=== PATIENT | female | born 1930 | race Caucasian/White ===

== ENCOUNTER 2016-08-04 23:11 | Inpatient (IN) | payer OTHER, MEDICARE ==
--- NOTE | 2016-08-04 23:20 | PDOC ---
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 The patient states the pain is radiating down her left arm pain. The patient notes she took her daily medications today. The patient denies SOB The patient denies nausea, vomiting, diarrhea Allergies: NKDA Social: Former smoker Surgical: double knee replacement, 3 C-sections, thyroid surgery (May 2016, US shows diffuse nodularity) PCP: Dr. Hyman Industrial Gas Fitter: Dr. Negrete 08/04/16 23:51 (Brissa Rodrigues) Past History <Brissa Rodrigues - Last Filed: 08/05/16 00:48> - Past Medical History HTN: Yes Suicide Attempt (Hx): No - Psycho/Social/Smoking Cessation Hx Anxiety: No Suicidal Ideation: No Smoking History: Former smoker Have you smoked in the past 12 months: No If you are a former smoker, when did you quit?: 50 YEARS AGO Hx Alcohol Use: No Drug/Substance Use Hx: No Substance Use Type: None <Libertad Kaplan - Last Filed: 08/05/16 01:05> - Past Medical History Allergies/Adverse Reactions: Allergies Allergy/AdvReac Type Severity Reaction Status Date / Time No Known Allergies Allergy Verified 10/09/15 18:55 Home Medications: Ambulatory Orders Carvedilol [Coreg] 25 mg PO BID 12/02/14 Methimazole [Tapazole] 2.5 mg PO DAILY 08/05/16 Review of Systems - Review of Systems Able to Perform ROS?: Yes <Brissa Rodrigues - Last Filed: 08/05/16 00:48> <Libertad Kaplan - Last Filed: 08/05/16 01:05> - Review of Systems Comments:: 08/04/16 23:49 CONSTITUTIONAL: Absent: fever, chills, diaphoresis, generalized weakness, malaise, loss of appetite HEENT: Absent: rhinorrhea, nasal congestion, throat pain, throat swelling, difficulty swallowing, mouth swelling, ear pain, eye pain, visual Changes CARDIOVASCULAR: +palpitations, chest pain. Absent: syncope, lightheadedness, peripheral edema RESPIRATORY: Absent: cough, shortness of breath, dyspnea with exertion, orthopnea, wheezing, stridor, hemoptysis GASTROINTESTINAL: Absent: abdominal pain, abdominal distension, nausea, vomiting, diarrhea, constipation, melena, hematochezia GENITOURINARY: Absent: dysuria, frequency, urgency, hesitancy, hematuria, flank pain, genital pain MUSCULOSKELETAL: +left arm pain. Absent: joint swelling SKIN: Absent: rash, itching, pallor NEUROLOGIC: Absent: headache, focal weakness or paresthesias, dizziness, unsteady gait, seizure, mental status changes, bladder or bowel incontinence PSYCHIATRIC: Absent: anxiety, depression, suicidal or homicidal ideation, hallucinations ( Brissa Rodrigues) *Physical Exam <Brissa Rodrigues - Last Filed: 08/05/16 00:48> <Libertad Kaplan - Last Filed: 08/05/16 01:05> - Vital Signs Last Vital Signs Temp Pulse Resp BP Pulse Ox 96.8 F L 132 H 25 H 97/60 96 08/04/16 23:33 08/05/16 00:23 08/05/16 00:23 08/05/16 00:23 08/05/16 00:23 - Physical Exam Comments: 08/04/16 23:51 GENERAL: Well developed, well nourished. Awake and alert. No acute distress. HEENT: Normocephalic, atraumatic. PERRLA, EOMI. No conjunctival pallor. Sclera are non- icteric. Moist mucous membranes. Oropharynx is clear. NECK: Supple. Full ROM. No JVD. Carotid pulses 2+ and symmetric, without bruits. No thyromegaly. No lymphadenopathy. CARDIOVASCULAR: +Afib. No murmurs, rubs, or gallops. Distal pulses are 2+ and symmetric. PULMONARY: No evidence of respiratory distress. Lungs clear to auscultation bilaterally. No wheezing, rales or rhonchi. ABDOMINAL: Soft. Non-tender. Non-distended. No rebound or guarding. No organomegaly. Normoactive bowel sounds. MUSCULOSKELETAL Normal range of motion at all joints. No bony deformities or tenderness. No CVA tenderness. EXTREMITIES: No cyanosis. No clubbing. No edema. No calf tenderness. SKIN: Warm and dry. Normal capillary refill. No rashes. No jaundice. NEUROLOGICAL: Alert, awake, appropriate. Cranial nerves 2-12 intact. No deficits to light touch and temperature in face, upper extremities and lower extremities. No motor deficits in the in face, upper extremities and lower extremities. Normoreflexic in the upper and lower extremities. Normal speech. PSYCHIATRIC: Cooperative. Good eye contact. Appropriate mood and affect. (Brissa Rodrigues) Heart Score/ECG Review <Brissa Rodrigues - Last Filed: 08/05/16 00:48> <Libertad Kaplan - Last Filed: 08/05/16 01:05> - ECG Impressions Comment:: 08/04/16 23:58 EKG Afib at a rate of 153 (Brissa Rodrigues) ED Treatment Course - LABORATORY CBC & Chemistry Diagram: 08/04/16 23:51 08/05/16 23:51 <Brissa Rodrigues - Last Filed: 08/05/16 00:48> - LABORATORY CBC & Chemistry Diagram: 08/04/16 23:51 08/05/16 23:51 <Libertad Kaplan - Last Filed: 08/05/16 01:05> - ADDITIONAL ORDERS Additional order review: Laboratory Results 08/05/16 08/04/16 23:51 23:51 INR 1.16 H Sodium 144 Potassium 4.3 Chloride 106 Carbon Dioxide 27 Anion Gap 11 BUN 28 H Creatinine 0.9 Creat Clearance w eGFR 59.65 Random Glucose 115 H D Calcium 8.4 L Magnesium 2.1 Total Bilirubin 0.3 D AST 19 D ALT 14 Alkaline Phosphatase 60 Creatine Kinase 45 Troponin I < 0.02 Total Protein 6.1 L Albumin 2.9 L 08/04/16 23:51 RBC 3.68 MCV 96.6 H MCHC 32.7 RDW 13.3 MPV 7.9 Neutrophils % 59.9 D Lymphocytes % 26.9 D Monocytes % 9.3 Eosinophils % 3.0 D Basophils % 0.9 D - RADIOLOGY Radiology Studies Ordered: Category Date Time Status CHEST PA & LAT [RAD] Stat Radiology 08/04/16 23:37 Ordered - Medications Given in the ED: ED Medications Discontinued Medications Generic Name Dose Route Start Last Admin Trade Name Zak PRN Reason Stop Dose Admin Aspirin 162 mg 08/04/16 23:37 08/04/16 23:53 Asa - PO 08/04/16 23:38 162 mg ONCE ONE Administration Metoprolol Tartrate 5 mg 08/04/16 23:56 08/05/16 00:10 Lopressor Injection - IVPUSH 08/04/16 23:57 5 mg ONCE ONE Administration Medical Decision Making <Brissa Rodrigues - Last Filed: 08/05/16 00:48> <Libertad Kaplan - Last Filed: 08/05/16 01:05> - Medical Decision Making 08/05/16 00:[address] Negrete at [phone]. Awaiting call back Paged Dr. Negrete at 00:36. Dr. Colmenares is continuous crusher operator, awaiting call back 08/05/16 00:41 Dr. Colmenares called back. Patients case was discussed 08/05/16 00:[address] Rodriguez is continuous crusher operator [facility]. Awaiting call back 08/05/16 00:48 Dr. Rodriguez called back, patients case was discussed. (Brissa Rodrigues) *DC/Admit/Observation/Transfer <Brissa Rodrigues - Last Filed: 08/05/16 00:48> - Discharge Dispostion Admit: Yes <Libertad Kaplan - Last Filed: 08/05/16 01:05> Diagnosis at time of Disposition: New onset atrial fibrillation, Atrial fibrillation with rapid ventricular response - Referrals Referrals: Tony Hyman MD [Primary Care Provider] - - Attestations Scribe Attestion: 08/04/16 23:50 Documentation prepared by Brissa Rodrigues, acting as medical office worker for Libertad Kaplan MD/DO. (Brissa Rodrigues)
[2016-08-04 23:35] VITALS: BMI 25.4
[2016-08-04] MEDS ORDERED: ASPIRIN 81 MG CHEWABLE TABLETS PO ONE (23:37)
[2016-08-04] MEDS ORDERED: METHIMAZOLE 5 MG TABLET (FP) PO PRN (23:42)
[2016-08-04] MEDS ORDERED: ASPIRIN 81 MG CHEWABLE TABLETS ONE (23:49)
[2016-08-04] MEDS ORDERED: METOPROLOL TARTRATE 5 MG/5 ML VIAL IVPUSH ONE (23:56)
[2016-08-05] MEDS ORDERED: METOPROLOL TARTRATE 5 MG/5 ML VIAL ONE (00:08)
[2016-08-05 00:12] LABS: BASOPHIL 0.9 % (0-2.0); MCH 31.6 pg (25.7-33.7); MCHC 32.7 g/dl (32.0-36.0); MEAN CELL VOLUME 96.6 fl (80-96); MEAN PLT VOLUME 7.9 fl (7.5-11.1); NEUTROPHILS 59.9 % (42.8-82.8); PLATELET COUNT 281 K/MM3 (134-434); RDW 13.3 % (11.6-15.6); WHITE BLOOD COUNT 4.8 K/mm3 (4.0-10.0)
[2016-08-05 00:28] LABS: INR 1.16 (0.82-1.09); PROTHROMBIN TIME (PATIENT) 12.8 SEC (9.98-11.88)
[2016-08-05 00:40] LABS: ALBUMIN 2.9 g/dl (3.4-5.0); ANION GAP 11 (8-16); CALCIUM 8.4 mg/dL (8.5-10.1); CO2 27 mmol/L (21-32); CREATININE 0.9 mg/dL (0.55-1.02); GLUCOSE,RANDOM 115 mg/dL (74-106); MAGNESIUM 2.1 mg/dL (1.8-2.4); SGPT/ALT 14 U/L (12-78)
[2016-08-05 00:43] LABS: ALK PHOS 60 U/L (45-117); BILIRUBIN,TOTAL 0.3 mg/dL (0.2-1.0); TOT PROT 6.1 g/dl (6.4-8.2); TROPONIN I < 0.02 ng/ml (0.00-0.05)
[2016-08-05 00:49] LABS: SGOT/AST 19 U/L (15-37)
[2016-08-05] MEDS ORDERED: HEPARIN NA (PORCINE) 5,000 UNITS/ML 1ML VIAL IVPUSH PRN ×3 (01:10)
[2016-08-05] MEDS ORDERED: dilTIAZem HCL 50 MG/10 ML - 10 ML VIAL IVPUSH ONE ×5 (01:11→08:38)
[2016-08-05] MEDS ORDERED: dilTIAZem HCL 50 MG/10 ML - 10 ML VIAL ONE ×2 (01:33→07:38)
[2016-08-05] MEDS ORDERED: HEPARIN INFUSION - 500 ML IVPB ONE (02:21)
[2016-08-05] MEDS: HEPARIN - 25,000 UNIT in SODIUM CHLORIDE 495 ML IV SCH (02:32)
[2016-08-05] MEDS ORDERED: METHIMAZOLE 5 MG TABLET (FP) PO ONE (03:14)
[2016-08-05] MEDS: METHIMAZOLE 5 MG TABLET (FP) PO SCH (09:09)
--- NOTE | 2016-08-05 09:12 | EKG ---
Test Reason : Blood Pressure : / mmHG Vent. Rate : 153 BPM Atrial Rate : 170 BPM P-R Int : 000 ms QRS Dur : 078 ms QT Int : 248 ms P-R-T Axes : 000 042 051 degrees QTc Int : 395 ms ATRIAL FIBRILLATION WITH RAPID VENTRICULAR RESPONSE ABNORMAL ECG WHEN COMPARED WITH ECG OF 02-DEC-2014 07:42, ATRIAL FIBRILLATION HAS REPLACED SINUS RHYTHM VENT. RATE HAS INCREASED BY 68 BPM Confirmed by SHAZIA SARAH MD ([id number]) on 08/05/2016 9:12:07 AM Referred By: Confirmed By:SHAZIA SARAH MD
[2016-08-05] MEDS ORDERED: CARVEDILOL 25 MG TABLET (FP) PO SCH (10:00)
--- NOTE | 2016-08-05 11:36 | HP ---
Admitting History and Physical - Primary Care Physician PCP: Tony Hyman - Admission Chief Complaint: My heart was racing History of Present Illness: Mrs Whitfield is a very pleasant 85 year old female who comes in with rapid heart rate. She says she was feeling well, but last night she started having pain in her left arm. She also noticed that her heart was racing. She sat up and the pain went away, but her heartbeat remained fast. She waited for about 15 minutes and it did not slow down so she came in. She is otherwise without complaint. She denies fevers, chills, lightheadedness, dizziness, passing out, chest pain or pressure, shortness of breath, nausea, vomiting, diarrhea, constipation, difficulty or pain on urination, or swelling. History Source: Patient Limitations to Obtaining History: No Limitations - Past Medical History Cardiovascular: Yes: HTN Endocrine: Yes: Hyperthyroidism - Past Surgical History Past Surgical History: Yes: , Joint Replacement - Smoking History Smoking history: Former smoker Have you smoked in the past 12 months: No If you are a former smoker, when did you quit?: 50 YEARS AGO - Alcohol/Substance Use Hx Alcohol Use: No History of Substance Use: reports: None - Social History Usual Living Arrangement: Yes: With Spouse ADL: Independent Home Medications - Allergies Allergies/Adverse Reactions: Allergies Allergy/AdvReac Type Severity Reaction Status Date / Time No Known Allergies Allergy Verified 10/09/15 18:55 - Home Medications Home Medications: Ambulatory Orders Carvedilol [Coreg] 25 mg PO BID 12/02/14 Methimazole [Tapazole] 2.5 mg PO DAILY 08/05/16 Family Disease History - Family Disease History Family Disease History: Other: Mother ( at age 93) Review of Systems Findings/Remarks: Full review of systems obtained, as per HPI and otherwise negative Physical Examination Vital Signs: Vital Signs Temperature 97.7 F 08/05/16 08:41 Pulse Rate 130 H 08/05/16 09:10 Respiratory Rate 19 08/05/16 09:10 Blood Pressure 108/75 08/05/16 09:10 O2 Sat by Pulse Oximetry (%) 98 08/05/16 09:10 Constitutional: Yes: Well Nourished, No Distress, Calm Eyes: Yes: Conjunctiva Clear, EOM Intact HENT: Yes: Atraumatic, Normocephalic Cardiovascular: Yes: Tachycardia, Pulse Irregular. No: Gallop, Murmur, Rub Respiratory: Yes: Regular, CTA Bilaterally. No: Rales, Rhonchi, Wheezes Gastrointestinal: Yes: Normal Bowel Sounds, Soft. No: Distention, Tenderness Extremities: Yes: WNL Edema: No Labs: CBC, BMP 08/05/16 23:51 Imaging - Results Chest X-ray: Report Reviewed, Image Reviewed EKG: Image Reviewed Problem List - Problems (1) Atrial fibrillation with rapid ventricular response Assessment/Plan: -suspect is secondary to hyperthyroidism -still tachycardic -continue coreg -on heparin gtt -cardiology consulted and awaiting recommendations Code(s): I48.91 - UNSPECIFIED ATRIAL FIBRILLATION (2) Hyperthyroidism Assessment/Plan: -patient on tapazole, however is not taking as prescribed -TSH checked and low normal -will check free T4 and T3 -continue tapazole Code(s): E05.90 - THYROTOXICOSIS, UNSP WITHOUT THYROTOXIC CRISIS OR STORM
--- NOTE | 2016-08-05 12:21 | CONSULT ---
Consult Consult Specialty:: Cardiology (Sr. Stevens covering Dr. Negrete) Referred by:: Dr. Rodriguez Reason for Consultation:: New onset atrial fibrillation - History of Present Illness Chief Complaint: Palpitations and chest pain History of Present Illness: 85 year old female followed by cardiology as outpatient by Dr. Negrete for hypertension. Last seen 5 weeks ago where she was informed she was "OK" from a CV perspective. Now who comes in with palpitations and new onset afib with RVR to 153/min. She says she was feeling well, but last night she started having pain in her left arm. She also noticed that her heart was racing. She sat up and the pain went away, but her heartbeat remained fast. She waited for about 15 minutes and it did not slow down so she came in. She is otherwise currently without complaint. She denies fevers, chills, lightheadedness, dizziness, passing out, chest pain or pressure, shortness of breath, nausea, vomiting, diarrhea, constipation, difficulty or pain on urination, or swelling. She has no personal history of TIA or CVA. No h/o DVT or PE. She does have a h/o thyroid disease and was recently placed on Methimazole 5mg that was lowered to 2.5mg due to increased urination. She had a thyroid tumor removed years ago. In the ED she was given Diltiazem, Metoprolol IV and coreg. Her curernt HR is 130/min in Afib. She was also started on IV UFH gtt. History Source: Patient - History Source History Provided By: Patient Limitations to Obtaining History: No Limitations - Past Medical History Cardio/Vascular: Yes: HTN Endocrine: Yes: Hyperthyroidism - Past Surgical History Past Surgical History: Yes: , Joint Replacement - Alcohol/Substance Use Hx Alcohol Use: No History of Substance Use: reports: None - Smoking History Smoking history: Former smoker Have you smoked in the past 12 months: No If you are a former smoker, when did you quit?: 50 YEARS AGO - Social History ADL: Independent Home Medications - Allergies Allergies/Adverse Reactions: Allergies Allergy/AdvReac Type Severity Reaction Status Date / Time No Known Allergies Allergy Verified 10/09/15 18:55 - Home Medications Home Medications: Ambulatory Orders Carvedilol [Coreg] 25 mg PO BID 12/02/14 Methimazole [Tapazole] 2.5 mg PO DAILY 08/05/16 Family Disease History - Family Disease History Family Disease History: Other: Mother ( at age 93) Physical Exam Vital Signs: Vital Signs Temperature 97.7 F 08/05/16 08:41 Pulse Rate 130 H 08/05/16 09:10 Respiratory Rate 19 08/05/16 09:10 Blood Pressure 108/75 08/05/16 09:10 O2 Sat by Pulse Oximetry (%) 98 08/05/16 09:10 Constitutional: Yes: No Distress, Calm Eyes: Yes: WNL HENT: Yes: WNL Neck: Yes: WNL, Trachea Midline Cardiovascular: Yes: Tachycardia, Pulse Irregular Respiratory: Yes: WNL Gastrointestinal: Yes: WNL, Normal Bowel Sounds, Soft Musculoskeletal: Yes: WNL Extremities: Yes: WNL Edema: No Neurological: Yes: WNL, Alert Psychiatric: Yes: WNL Labs: CBC, BMP 08/05/16 23:51 Imaging - Results X-ray: Report Reviewed (No active pulmonary disease) EKG: Image Reviewed (Done at 23:21: Rapid Afib with RVR at 153. No ischemic noted.) Assessment/Plan 85 yo female with underlying thyroid disease on Methimazone with recent dose lowering now with new onset Afib with RVR. 1) Afib with RVR -Will d/c coreg and start Metoprolol for more B-antagonism especially if this is thyroid related -Etiology unclear but with h/o thyroid may be thyroid related. Although TSH OK ( ?) -Doubt PE or DVT but raises suspicion with low level troponin -Good chance she may spontaneously convert to NSR in the next 24-48 hours with beta-blcoker alone but reasonable to anticoagulate with IV UFH now. [id number] VASc = 4 (HTN, Age >75 and Female gender) -Start metoprolol 25mg pO BID and titrate for HR control -Follow PT/PTT -Agree with admission to telemetry -Would get Echo once back in NSR 2) (+) troponin -Likely demand related, doubt ACS -Continue to trend -On Beta efra, UFH and will start asa 3) HTN -Will hold coreg (for reasons noted above) and start metoprolol -Follow BP
[2016-08-05] MEDS ORDERED: METOPROLOL TARTRATE 25 MG TABLET (FP) PO SCH (12:30)
[2016-08-05] MEDS ORDERED: METOPROLOL TARTRATE 25 MG TABLET (FP) ONE (12:39)
[2016-08-05 14:13] LABS: ALBUMIN 2.8 g/dl (3.4-5.0); ANION GAP 7 (8-16); BILIRUBIN,TOTAL 0.4 mg/dL (0.2-1.0); CALCIUM 8.1 mg/dL (8.5-10.1); CO2 28 mmol/L (21-32); CREATININE 0.8 mg/dL (0.55-1.02); GLUCOSE,RANDOM 124 mg/dL (74-106); MAGNESIUM 2.1 mg/dL (1.8-2.4); SGOT/AST 15 U/L (15-37); SGPT/ALT 14 U/L (12-78); TOT PROT 5.7 g/dl (6.4-8.2)
[2016-08-05 14:16] LABS: ALK PHOS 53 U/L (45-117); TROPONIN I 0.21 ng/ml (0.00-0.05)
[2016-08-05 20:54] LABS: TROPONIN I 0.22 ng/ml (0.00-0.05)
[2016-08-05] MEDS: METOPROLOL TARTRATE 25 MG TABLET (FP) PO SCH (22:23)
[2016-08-06] MEDS: METOPROLOL TARTRATE 25 MG TABLET (FP) PO SCH ×3 (06:40→22:02)
[2016-08-06] MEDS: HEPARIN - 25,000 UNIT in SODIUM CHLORIDE 495 ML IV SCH ×2 (06:40→12:35)
[2016-08-06 08:42] LABS: CALCIUM 8.1 mg/dL (8.5-10.1); CREATININE 0.8 mg/dL (0.55-1.02); MAGNESIUM 2.1 mg/dL (1.8-2.4); PHOSPHOROUS 3.6 mg/dL (2.5-4.9)
[2016-08-06 09:42] LABS: BASOPHIL 0.6 % (0-2.0); EOSINOPHIL 2.4 % (0-4.5); MCH 32.9 pg (25.7-33.7); MCHC 33.9 g/dl (32.0-36.0); MEAN PLT VOLUME 8.3 fl (7.5-11.1); NEUTROPHILS 67.2 % (42.8-82.8); PLATELET COUNT 270 K/MM3 (134-434); RDW 13.6 % (11.6-15.6); WHITE BLOOD COUNT 4.6 K/mm3 (4.0-10.0)
[2016-08-06] MEDS ORDERED: HEPARIN INFUSION - 500 ML IVPB ONE (11:11)
[2016-08-06] MEDS: METHIMAZOLE 5 MG TABLET (FP) PO SCH (11:14)
[2016-08-06] MEDS: ASPIRIN 81 MG CHEWABLE TABLETS PO SCH (11:14)
--- NOTE | 2016-08-06 12:08 | PN ---
Progress Note (short form) - Note Progress Note: Chief Complaint: new onset afib. S: Current Medications Aspirin (Asa -) 81 mg PO DAILY [facility] Last Admin: 08/06/16 11:14 Dose: 81 mg Heparin Sodium (Porcine) (Heparin -) 5,000 unit IVPUSH PRN PRN PRN Reason: Heparin Last Admin: 08/05/16 02:46 Dose: 5,000 unit Heparin Sodium (Porcine) (Heparin -) 1,000 unit IVPUSH PRN PRN PRN Reason: Heparin Heparin Sodium (Porcine) 25, (000 unit/ Sodium Chloride) 500 mls @ 16 mls/hr IV TITR YOEL; 800 UNIT/HR PRN Reason: Protocol Last Admin: 08/06/16 06:40 Dose: 16 mls/hr Methimazole (Tapazole -) 2.5 mg PO DAILY [facility] Last Admin: 08/06/16 11:14 Dose: 2.5 mg Metoprolol Tartrate (Lopressor -) 25 mg PO TID [facility] Last Admin: 08/06/16 06:40 Dose: 25 mg Vital Signs - 24 hr 08/05/16 08/05/16 08/05/16 12:35 12:38 14:03 Temperature Pulse Rate 121 H Pulse Rate [ 144 H 138 H Radial] Respiratory 20 15 Rate Blood Pressure 98/80 Blood Pressure 98/75 98/67 [Right Arm] O2 Sat by Pulse 100 96 Oximetry (%) 08/05/16 08/05/16 08/05/16 15:30 18:30 21:00 Temperature 97.8 F 98.1 F Pulse Rate 75 Pulse Rate [ 139 H 73 Radial] Respiratory 23 18 20 Rate Blood Pressure 142/84 Blood Pressure 132/111 134/60 [Right Arm] O2 Sat by Pulse 98 99 95 Oximetry (%) 08/06/16 08/06/16 02:00 10:00 Temperature 98 F 98.2 F Pulse Rate 83 84 Pulse Rate [ Radial] Respiratory 20 14 Rate Blood Pressure 139/80 148/74 Blood Pressure [Right Arm] O2 Sat by Pulse Oximetry (%) Intake & Output 08/04/16 08/05/16 08/06/16 08/07/16 07:59 07:59 07:59 07:59 Intake Total 200 Balance 200 Weight 135 lb 135 lb Constitutional: Yes: No Distress, Calm Eyes: Yes: WNL HENT: Yes: WNL Neck: Yes: WNL, Trachea Midline Cardiovascular: Yes: RRR nl s1, s2. Respiratory: Yes: WNL Gastrointestinal: Yes: WNL, Normal Bowel Sounds, Soft Musculoskeletal: Yes: WNL Extremities: Yes: WNL Edema: No Neurological: Yes: WNL, Alert Psychiatric: Yes: WNL Labs: CBC, BMP 08/06/16 05:35 08/06/16 05:35 Laboratory Tests 08/05/16 08/05/16 08/06/16 19:42 23:51 05:35 Magnesium 2.1 Troponin I 0.22 H < 0.02 Albumin 2.9 L 08/06/16 05:35 Magnesium Troponin I 0.19 H Albumin tele: sr, rare pvc's. Intermittent self-limited svt. Imaging - Results X-ray: Report Reviewed (No active pulmonary disease) EKG: Image Reviewed (Done at 23:21: Rapid Afib with RVR at 153. No ischemic noted.) Assessment/Plan 85 yo female with underlying thyroid disease on Methimazone with recent dose lowering now with new onset Afib with RVR. 1) Afib with RVR --> Now SR - d/c coreg and started Metoprolol for more B-antagonism especially if this is thyroid related -Etiology unclear but with h/o thyroid may be thyroid related. Although TSH OK ( ?) -Doubt PE or DVT but raises suspicion with low level troponin -s/p spontaneously convertion to NSR. [id number] = 4 (HTN, Age >75 and Female gender). Would continue AC. Consider eliquis if cost not issue. Will initiate first dose tonight. -Started metoprolol 25mg pO tid, can transition to succinate in the am. -Follow PT/PTT - echo 2) (+) troponin -Likely demand related, doubt ACS. trend 0.22, 0.02, 0.19. -Consider ischemic evaluation per outpatient co founder and chief strategy officer. outpatient vs. inpatient depending on results of echo. -On Beta efra, UFH and will con't asa for now. start low dose statin. 3) HTN -changed coreg to metoprolol, reasonable bp control.
--- NOTE | 2016-08-06 15:06 | PN ---
Progress Note, Physician Chief Complaint: Ms Whitfield is without complaint. No cp, sob, n/v. Palpitations have resolved. - Current Medication List Current Medications: Active Medications Apixaban (Eliquis -) 5 mg PO BID [facility] Aspirin (Asa -) 81 mg PO DAILY [facility] Last Admin: 08/06/16 11:14 Dose: 81 mg Atorvastatin Calcium (Lipitor -) 10 mg PO HS YOEL Heparin Sodium (Porcine) (Heparin -) 5,000 unit IVPUSH PRN PRN PRN Reason: Heparin Stop: 08/06/16 21:00 Last Admin: 08/05/16 02:46 Dose: 5,000 unit Heparin Sodium (Porcine) (Heparin -) 1,000 unit IVPUSH PRN PRN PRN Reason: Heparin Stop: 08/06/16 21:00 Heparin Sodium (Porcine) 25, (000 unit/ Sodium Chloride) 500 mls @ 16 mls/hr IV TITR YOEL; 800 UNIT/HR PRN Reason: Protocol Stop: 08/06/16 21:00 Last Admin: 08/06/16 12:35 Dose: 16 mls/hr Methimazole (Tapazole -) 2.5 mg PO DAILY [facility] Last Admin: 08/06/16 11:14 Dose: 2.5 mg Metoprolol Succinate (Toprol Xl -) 75 mg PO DAILY [facility] Metoprolol Tartrate (Lopressor -) 25 mg PO TID [facility] Stop: 08/06/16 23:55 Last Admin: 08/06/16 15:02 Dose: 25 mg - Objective Vital Signs: Vital Signs Temperature 98.2 F 08/06/16 10:00 Pulse Rate 84 08/06/16 10:00 Respiratory Rate 14 08/06/16 10:00 Blood Pressure 148/74 08/06/16 10:00 O2 Sat by Pulse Oximetry (%) 95 08/05/16 21:00 Constitutional: Yes: Well Nourished, No Distress, Calm Cardiovascular: Yes: Regular Rate and Rhythm. No: Gallop, Murmur, Rub Respiratory: Yes: Regular, CTA Bilaterally. No: Rales, Rhonchi, Wheezes Gastrointestinal: Yes: Normal Bowel Sounds, Soft. No: Distention, Tenderness Extremities: Yes: WNL Edema: No Labs: CBC, BMP 08/06/16 05:35 08/06/16 05:35 INR, PTT INR 1.16 (0.82-1.09) H 08/04/16 23:51 Problem List - Problems (1) Atrial fibrillation with rapid ventricular response Code(s): I48.91 - UNSPECIFIED ATRIAL FIBRILLATION (2) Hyperthyroidism Code(s): E05.90 - THYROTOXICOSIS, UNSP WITHOUT THYROTOXIC CRISIS OR STORM Assessment/Plan (1) Atrial fibrillation with rapid ventricular response Assessment/Plan: -spontaneously converted to sinus rhythm -coreg changed to metoprolol -anticoagulation with eliquis -possible discharge tomorrow Code(s): I48.91 - UNSPECIFIED ATRIAL FIBRILLATION (2) Hyperthyroidism Assessment/Plan: -TFTs normal -continue tapazole -outpatient follow up with her brim buster Code(s): E05.90 - THYROTOXICOSIS, UNSP WITHOUT THYROTOXIC CRISIS OR STORM
[2016-08-06] MEDS ORDERED: ATORVASTATIN CA 10 MG TABLET (FP) PO SCH (22:00)
[2016-08-06] MEDS: APIXABAN 5 MG TABLET PO SCH (22:00)
[2016-08-07 07:43] LABS: MCH 32.6 pg (25.7-33.7); MCHC 33.8 g/dl (32.0-36.0); MEAN CELL VOLUME 96.5 fl (80-96); MEAN PLT VOLUME 8.2 fl (7.5-11.1); PLATELET COUNT 197 K/MM3 (134-434); RDW 13.7 % (11.6-15.6); WHITE BLOOD COUNT 4.2 K/mm3 (4.0-10.0)
[2016-08-07 07:45] LABS: CREATININE 0.8 mg/dL (0.55-1.02); PHOSPHOROUS 3.7 mg/dL (2.5-4.9)
[2016-08-07 07:58] VITALS: PULSE 90; TEMP 98
[2016-08-07 08:41] VITALS: BP 130/78
[2016-08-07] MEDS: ASPIRIN 81 MG CHEWABLE TABLETS PO SCH (09:54)
[2016-08-07] MEDS: APIXABAN 5 MG TABLET PO SCH (09:55)
[2016-08-07] MEDS: METHIMAZOLE 5 MG TABLET (FP) PO SCH (09:55)
[2016-08-07] MEDS ORDERED: METOPROLOL SUCCINATE 50 MG TAB.SR.24H (FP) PO SCH (10:00)
--- NOTE | 2016-08-07 11:06 | PN ---
Progress Note (short form) - Note Progress Note: S: no cp sob palps dizzy Current Medications Generic Name Dose Route Start Last Admin Trade Name Zak PRN Reason Stop Dose Admin Apixaban 5 mg 08/06/16 22:00 08/07/16 09:55 Eliquis - PO 5 mg BID YOEL Administration Atorvastatin Calcium 10 mg 08/06/16 22:00 08/06/16 21:59 Lipitor - PO 10 mg HS YOEL Administration Methimazole 2.5 mg 08/05/16 10:00 08/07/16 09:55 Tapazole - PO 2.5 mg DAILY YOEL Administration Metoprolol Succinate 75 mg 08/07/16 10:00 08/07/16 09:55 Toprol Xl - PO 75 mg DAILY YOEL Administration Vital Signs Period Temp Pulse Resp BP Sys/Auguste Pulse Ox Last 24 Hr 97.5 F-98.3 F 67-90 18-20 113-151/74-87 95 nad no jvd rrr s1s2 no mrg cta bl nl eff aaox3 no le e/c/c no jaundice diaphoresis CBC, BMP 08/07/16 05:35 08/07/16 05:35 tele: sr echo 07/2016: nl lv/rv, mild-mod mr/tr, rvsp 30-40 Assessment/Plan 85 yo female with underlying thyroid disease on Methimazone with recent dose lowering now with new onset Afib with RVR. 1) Afib with RVR --> Now SR - d/c coreg and started Metoprolol for more B-antagonism especially if this is thyroid related -Etiology unclear but with h/o thyroid may be thyroid related. Although TSH OK ( ?) -s/p spontaneously convertion to NSR. [id number] = 4 (HTN, Age >75 and Female gender). Cont eliquis. Can dc aspirin. - echo unremarkable 2) (+) troponin -borderline elevation with flat trend not consistent with acs. echo here without wma's as well. -cont bb, statin, AC (no need for asa as well) 3) HTN -stable cardiac carranza stable for dc
--- NOTE | 2016-08-07 12:41 | DS ---
Physical Examination Vital Signs: Vital Signs Temperature 98 F 08/07/16 07:50 Pulse Rate 90 08/07/16 07:50 Respiratory Rate 20 08/07/16 07:50 Blood Pressure 130/78 08/07/16 07:50 O2 Sat by Pulse Oximetry (%) 96 08/07/16 09:00 Constitutional: Yes: Well Nourished, No Distress, Calm Cardiovascular: Yes: Regular Rate and Rhythm. No: Gallop, Murmur, Rub Respiratory: Yes: Regular, CTA Bilaterally. No: Rales, Rhonchi, Wheezes Gastrointestinal: Yes: Normal Bowel Sounds, Soft. No: Distention, Tenderness Extremities: Yes: WNL Edema: No Labs: CBC, BMP 08/07/16 05:35 08/07/16 05:35 Discharge Summary Reason For Visit: A-FIB Current Active Problems Atrial fibrillation with rapid ventricular response (Acute) Hyperthyroidism (Acute) New onset atrial fibrillation (Acute) Hospital Course: (1) Atrial fibrillation with rapid ventricular response Code(s): I48.91 - UNSPECIFIED ATRIAL FIBRILLATION (2) Hyperthyroidism Code(s): E05.90 - THYROTOXICOSIS, UNSP WITHOUT THYROTOXIC CRISIS OR STORM Mrs Whitfield is a very pleasant 85 year old female who came in with afib with rvr. She was admitted to the hospital on a heparin gtt. She was converted from coreg to toprol xl. She spontaneously converted to sinus rhythm. Her TFTs were checked and normal. Currently she is doing well. She is safe for discharge home. Condition: Good - Instructions Diet, Activity, Other Instructions: resume previous diet and activity Referrals: Tony Hyman MD [Primary Care Provider] - Disposition: HOME - Home Medications Comprehensive Discharge Medication List: Ambulatory Orders Methimazole [Tapazole] 2.5 mg PO DAILY 08/05/16 Apixaban [Eliquis -] 5 mg PO BID #60 tablet 08/07/16 Atorvastatin Ca [Lipitor] 10 mg PO HS #30 tablet 08/07/16 Metoprolol Succinate [Toprol XL -] 75 mg PO DAILY #90 tab.sr.24h 08/07/16
--- NOTE | 2016-08-12 12:59 | EKG ---
Test Reason : Blood Pressure : / mmHG Vent. Rate : 103 BPM Atrial Rate : 104 BPM P-R Int : 000 ms QRS Dur : 078 ms QT Int : 290 ms P-R-T Axes : 000 031 029 degrees QTc Int : 379 ms ATRIAL FIBRILLATION WITH RAPID VENTRICULAR RESPONSE ABNORMAL ECG WHEN COMPARED WITH ECG OF 04-AUG-2016 23:21, NO SIGNIFICANT CHANGE WAS FOUND Confirmed by ROBERTO BAKER MD ([id number]) on 08/12/2016 12:58:32 PM Referred By: Confirmed By:ROBERTO BAKER MD
== END 2016-08-07 13:45 | disposition home or self-care (01) | DRG 310 ==
LOC: JER 23:11 → JERBED 08-05 01:13 → J4W 08-05 20:33
PROVIDERS: ADMIT Internal Medicine; ATTEND Internal Medicine
DX: I48.91 Unspecified atrial fibrillation (principal); R07.89 Other chest pain; H35.30 Unspecified macular degeneration; M48.00 Spinal stenosis, site unspecified; E05.80 Other thyrotoxicosis without thyrotoxic crisis or storm; I10 Essential (primary) hypertension; Z87.891 Personal history of nicotine dependence; Z96.653 Presence of artificial knee joint, bilateral
CPT/HCPCS: 36415; 71010-TC; 80048; 80053; 82550; 83735; 84100; 84439; 84443; 84481; 84484; 85025; 85027; 85610; 85730; 93005; 93010; 93306-TC; 99285-25; J1644